=== PATIENT | male | born 1960 | race Caucasian/White ===

== ENCOUNTER 2018-03-01 22:29 | Emergency (ER) | payer OTHER ==
[~2018-03-01] VITALS: Ht 177.8 cm; Wt 90.0 kg
[2018-03-01 22:30] VITALS: BP 175/110
== END 2018-03-01 23:37 | disposition home or self-care (01) ==
LOC: ER 22:30
DX: F10.129 Alcohol abuse with intoxication, unspecified (principal); F17.200 Nicotine dependence, unspecified, uncomplicated; Y90.9 Presence of alcohol in blood, level not specified
CPT/HCPCS: 99284

== ENCOUNTER 2019-12-17 16:08 | Emergency (ER) | payer MEDICAID ==
[~2019-12-17] VITALS: Ht 175.3 cm; Wt 90.9 kg
[2019-12-17 16:22] LABS: BASOPHILS % (AUTO) 0.3 % (0-1); EOSINOPHILS # (AUTO) 0.1 X10'3 (0-0.9); HEMATOCRIT 43.6 % (42.0-52.0); HEMOGLOBIN 14.6 g/dl (14.0-17.9); LYMPHOCYTES # (AUTO) 0.5 X10'3 (1.1-4.8); LYMPHOCYTES % (AUTO) 6.9 % (21-51); MEAN CORPUSCULAR HEMOGLOBIN 32.2 PG (27.0-31.0); MEAN CORPUSCULAR HGB CONC 33.6 g/dL (33.0-36.5); MEAN PLATELET VOLUME 7.7 FL (7.4-10.4); MONOCYTES # (AUTO) 0.5 X10'3 (0-0.9); NEUTROPHILS # (AUTO) 6.2 X10'3 (1.8-7.7); NEUTROPHILS % (AUTO) 83.8 % (42-75); PLATELET COUNT 227 X10'3 (140-440); RED BLOOD COUNT 4.55 X10'6 (4.70-6.10); RED CELL DISTRIBUTION WIDTH 15.2 % (11.5-14.5); WHITE BLOOD COUNT 7.4 X10'3 (4.5-11.0)
--- NOTE | 2019-12-17 16:22 | NUR ---
PT IS 59YO MALE BIB EMS FROM [facility], PT WAS RELEASED FROM [facility] (ADMITTED FOR ETOH WITHDRAWAL) TODAY AROUND NOON, HAD TAXI TO THE MISSION, "[place] IS REALLY STEEP", PT SAID CHEST PAIN STARTED AT 1500, RT SHOULDER "ACHES", FEELS ANXIOUS, +SOB, +NAUSEA, +PRODUCTIVE COUGH WITH GREEN SPUTUM, PT SAID HIS LAST DRINK WAS 5 DAYS AGO, [employer] AT BEDSIDE
[2019-12-17 16:37] LABS: ALANINE AMINOTRANSFERASE 141 U/L (12-78); ALBUMIN 3.3 G/DL (3.4-5.0); ALBUMIN/GLOBULIN RATIO 0.8 (1.1-1.5); ALKALINE PHOSPHATASE 184 IU/L (46-116); ANION GAP 14 (8-16); ASPARTATE AMINO TRANSFERASE 115 U/L (10-37); BILIRUBIN,TOTAL 0.6 MG/DL (0.1-1.0); BLOOD UREA NITROGEN 14 MG/DL (7-18); BUN/CREATININE RATIO 14.4 (5.4-32.0); CALCIUM 9.2 MG/DL (8.5-10.1); CHLORIDE 103 MMOL/L (99-107); CREATININE 0.97 MG/DL (0.60-1.10); GLUCOSE 129 MG/DL (70-104); SODIUM 140 MMOL/L (135-145); TOTAL CARBON DIOXIDE 22.9 MMOL/L (24-32); TOTAL PROTEIN 7.4 G/DL (6.4-8.2); eGFR 80 ML/MIN
[2019-12-17 17:31] VITALS: BP 172/126
== END 2019-12-17 17:46 | disposition home or self-care (01) ==
LOC: ER 16:09
DX: R07.89 Other chest pain (principal); M25.511 Pain in right shoulder; R11.0 Nausea; I10 Essential (primary) hypertension; F10.10 Alcohol abuse, uncomplicated; Z86.69 Personal history of other diseases of the nervous system and sense organs; Z86.73 Personal history of transient ischemic attack (TIA), and cerebral infarction without residual deficits; Z59.0 Homelessness
CPT/HCPCS: 36415; 71045; 80053; 84484; 85025; 93005; 99285

== ENCOUNTER 2019-12-27 09:40 | Emergency (ER) | payer MEDICAID ==
[~2019-12-27] VITALS: Ht 175.3 cm; Wt 80.0 kg
[2019-12-27 09:41] VITALS: BP 199/121
== END 2019-12-27 10:00 | disposition home or self-care (01) ==
LOC: ER 09:40
DX: Z00.00 Encounter for general adult medical examination without abnormal findings (principal); F10.10 Alcohol abuse, uncomplicated; I10 Essential (primary) hypertension; Z86.73 Personal history of transient ischemic attack (TIA), and cerebral infarction without residual deficits; Z86.69 Personal history of other diseases of the nervous system and sense organs; Z59.0 Homelessness
CPT/HCPCS: 99281

== ENCOUNTER → 2021-06-30 | Emergency (ER) | payer MEDICARE, MEDICAID ==
[~2021-06-30] VITALS: Ht 175.3 cm; Wt 118.2 kg
[~2021-06-30] MED LIST: ALBU8.5H17 INH; AMLO5TAB16 PO; ASPI-1071 PO; CARV6.253 PO; CEFD300C3 PO; FOLI0.4T6 PO; FURO-150 PO; ISOS30TA84 PO; LACT1CAP26 PO; LOSA100T57 PO; MULT-25 PO; NITR0.4T51 SL; ONDA8TAB13 PO; PANT-47 PO; SPIR25TA5 PO; THIA50TA10 PO; acetaminophen 325mg tablet PO ONE; normal saline 1000ml 1,000 ML IV ONE; pantoprazole 40mg Tablet.DR PO SCH; phenobarbital inj 130 MG in normal saline 100ml IV soln 99 ML IV ONE; phenobarbital inj 130 MG in normal saline 100ml IV soln 99 ML IV SCH; potassium Cl 20 mEq SR tablet PO ONE; potassium Cl 20 mEq SR tablet PO STA
[2021-06-30 05:00] VITALS: BP 178/110
[2021-06-30 05:18] LABS: ALANINE AMINOTRANSFERASE 155 U/L (12-78); ALBUMIN 3.6 G/DL (3.4-5.0); ALBUMIN/GLOBULIN RATIO 0.9 (1.1-1.5); ALKALINE PHOSPHATASE 107 IU/L (46-116); ANION GAP 30 (8-16); ASPARTATE AMINO TRANSFERASE 230 U/L (10-37); BILIRUBIN,TOTAL 1.2 MG/DL (0.1-1.0); BLOOD UREA NITROGEN 28 MG/DL (7-18); BUN/CREATININE RATIO 19.3 (5.4-32.0); CALCIUM 7.9 MG/DL (8.5-10.1); CHLORIDE 94 MMOL/L (99-107); CREATININE 1.45 MG/DL (0.60-1.10); GLUCOSE 118 MG/DL (70-104); POTASSIUM 3.4 MMOL/L (3.5-5.1); SODIUM 140 MMOL/L (135-145); TOTAL CARBON DIOXIDE 15.6 MMOL/L (24-32); TOTAL PROTEIN 7.7 G/DL (6.4-8.2); eGFR 50 ML/MIN
[2021-06-30 05:20] LABS: BASOPHILS # (AUTO) 0.1 X10'3 (0-0.2); BASOPHILS % (AUTO) 1.1 % (0-1); EOSINOPHILS % (AUTO) 0 % (0-6); HEMATOCRIT 42.4 % (42.0-52.0); HEMOGLOBIN 14.7 g/dl (14.0-17.9); LYMPHOCYTES # (AUTO) 0.4 X10'3 (1.1-4.8); LYMPHOCYTES % (AUTO) 3.9 % (21-51); MEAN CORPUSCULAR HEMOGLOBIN 29.4 PG (27.0-31.0); MEAN CORPUSCULAR HGB CONC 34.7 g/dL (33.0-36.5); MEAN CORPUSCULAR VOLUME 84.9 FL (78-98); MEAN PLATELET VOLUME 7.2 FL (7.4-10.4); MONOCYTES # (AUTO) 0.5 X10'3 (0-0.9); MONOCYTES % (AUTO) 5.4 % (2-12); NEUTROPHILS % (AUTO) 89.6 % (42-75); PLATELET COUNT 198 X10'3 (140-440); RED CELL DISTRIBUTION WIDTH 17.1 % (11.5-14.5); WHITE BLOOD COUNT 10.1 X10'3 (4.5-11.0)
[2021-06-30] MEDS: dextrose 5%-normal saline 1,000 ML IV SCH ×2 (06:35→07:44)
[2021-06-30 08:47] LABS: BLOOD UREA NITROGEN 23 MG/DL (7-18); BUN/CREATININE RATIO 19.5 (5.4-32.0); CHLORIDE 100 MMOL/L (99-107); CREATININE 1.18 MG/DL (0.60-1.10); GLUCOSE 278 MG/DL (70-104); POTASSIUM 3.1 MMOL/L (3.5-5.1); eGFR 63 ML/MIN
[2021-06-30 08:52] LABS: ALBUMIN 3.1 G/DL (3.4-5.0); ANION GAP 23 (8-16); CALCIUM 6.9 MG/DL (8.5-10.1); SODIUM 140 MMOL/L (135-145); TOTAL CARBON DIOXIDE 17.3 MMOL/L (24-32)
[2021-06-30 09:17] LABS: OCCULT BLOOD STOOL POSITIVE (Neg)
--- NOTE | 2021-06-30 12:12 | NUR ---
MAKSIM CARGO CONTACTED [phone] NO ETA FOR AN AVAILABLE PICKUP AT THIS TIME. DIANA WILL CALL BACK WITH TRANSPORT ETA
== END | disposition home or self-care (01) ==
LOC: ER 04:04
DX: S09.90XA Unspecified injury of head, initial encounter (principal); F10.10 Alcohol abuse, uncomplicated; K29.21 Alcoholic gastritis with bleeding; E86.0 Dehydration; I10 Essential (primary) hypertension; Z86.73 Personal history of transient ischemic attack (TIA), and cerebral infarction without residual deficits; Z86.69 Personal history of other diseases of the nervous system and sense organs; Z72.89 Other problems related to lifestyle; Z59.00 Homelessness unspecified; Z79.899 Other long term (current) drug therapy; W19.XXXA Unspecified fall, initial encounter; Y93.89 Activity, other specified; Y92.89 Other specified places as the place of occurrence of the external cause; Y99.8 Other external cause status
CPT/HCPCS: 36415; 70450; 80048; 80053; 82272; 85025; 85610; 93005; 96361; 96365; 99285; J2560; J7030; J7042